=== PATIENT | female | born 1965 | race Caucasian/White ===

== ENCOUNTER 2016-09-22 20:37 | Emergency (ER) | payer OTHER ==
[2016-09-22 20:54] VITALS: BP 128/87
[2016-09-22] MEDS ORDERED: Eye Irrigation Solution 30 ML BOTTLE RIGHT EYE ONE (21:21)
[2016-09-22] MEDS ORDERED: Tetracaine 0.5% OPTH.SOL 4 ML* 1 DROP BTL RIGHT EYE ONE (21:21)
[2016-09-22] MEDS ORDERED: Proparacaine 0.5% OPHTH.SOL* 15 ML BTL RIGHT EYE ONE (21:26)
[2016-09-22] MEDS ORDERED: NS 0.9% 1000 ML* 1,000 ML IV ONE (21:36)
--- NOTE | 2016-09-22 21:53 | UC ---
Eye Complaint HPI - HPI Summary HPI Summary: The patient comes in today for: 1. Right eye injury: Onset: 9 hours ago. Palliative/provocative: Nothing helps. Quality: "Gritty and sensitive--feeling scratched." Region: Right eye Severity: 410 Time:Constant. Associated symptoms: Event: Patient put her contact lens in a cleaning solution that is supposed to be prepared with an enzyme catalyst solution which she did not put in. This cleaning solution is Tom Clear Care (3% H2O2 solution). The patient put the contact in her right eye at 1 PM today. She immediately felt pain and took the contat lens out. She tired to flush the right eye with eye wash without relief of symptoms. Previous treatment: She tried irrigating her eye with wash at home which did not help. LMP: years ago. Vision: "just fine." * - History of Current Complaint Chief Complaint: UCEye Stated Complaint: EYE INJURY Time Seen by Provider: 09/22/16 21:20 Hx Obtained From: Patient ?: No - Allergies/Home Medications Allergies/Adverse Reactions: Allergies Allergy/AdvReac Type Severity Reaction Status Date / Time Amoxicillin Allergy Rash Verified 09/22/16 20:54 Meloxicam AdvReac Intermediate See Comment Verified 09/22/16 20:54 Home Medications: Home Medications Acetaminophen 3 tab PO PRN 09/22/16 [History] Anastrozole [Arimidex] 1 mg PO DAILY 09/22/16 [History Confirmed 09/22/16] Bupropion XL* [Wellbutrin XL *] 150 mg PO DAILY 09/22/16 [History Confirmed ] Ibuprofen TAB* [Advil TAB*] 600 mg PO PRN 09/22/16 [History] PMH/Surg Hx/FS Hx/Imm Hx Previously Healthy: No - Breast cancer. Endocrine History Of: Reports: Thyroid Disease - hypothyroid Denies: Diabetes, Hyperthyroidism, Hypothyroidism, Dyslipidemia Cardiovascular History Of: Denies: Cardiac Disorders, Hypertension, Pacemaker/ICD, Myocardial Infarction , Congestive Heart Failure, Atrial Fibrillation, Deep Vein Thrombosis, Bleeding Disorders Respiratory History Of: Reports: Asthma Denies: COPD, Bronchitis, Pneumonia, Pulmonary Embolism GI/ History Of: Denies: Gastroesophageal Reflux, Ulcer, Gastrointestinal Bleed, Gall Bladder Disease, Kidney Stones, Diverticulitis, Renal Disease, Urosepsis Neurological History Of: Denies: TIA, CVA, Dementia, Seizures, Migraine Psychological History Of: Reports: Depression Denies: Anxiety, Bipolar Disorder, Schizophrenia, Post Traumatic Stress Disorder Cancer History Of: Reports: Breast Cancer - RIGHT 2012 Denies: Lung Cancer, Colorectal Cancer, Prostate Cancer, Cervical Cancer Other History Of: Negative For: HIV, Hepatitis B, Hepatitis C, Anticoagulant Therapy - Surgical History Surgical History: Yes Surgery Procedure, Year, and Place: 09/2003 LT LAMINECTOMY LUMBAR; [facility]. 1982RT KNEE COSMETIC SCAR REDUCTION; [facility]. 2011 LUMPECTOMY RT BREAST(CANCER) [facility] - Family History Known Family History: Positive: Cardiac Disease, Hypertension - Social History Occupation: Employed Full-time Alcohol Use: None Alcohol Amount: FEW DRINKS/WEEK Substance Use Type: None Smoking Status (MU): Never Smoked Tobacco Have You Smoked in the Last Year: No Review of Systems Constitutional: Negative Skin: Negative Eyes: Eye Redness ENT: Negative Respiratory: Negative Cardiovascular: Negative Gastrointestinal: Negative Genitourinary: Negative All Other Systems Reviewed And Are Negative: Yes Physical Exam Triage Information Reviewed: Yes Appearance: Well-Appearing, No Pain Distress, Well-Nourished Vital Signs: Initial Vital Signs Temp 99 F 09/22/16 20:45 Pulse 75 09/22/16 20:45 Resp 16 09/22/16 20:45 BP 128/87 09/22/16 20:45 Pulse Ox 100 09/22/16 20:45 Vital Signs Reviewed: Yes Eyes: Positive: Conjunctiva Clear - On left, Conjunctiva Inflamed - On right.. Negative: Discharge ENT: Positive: Hearing grossly normal. Negative: Pharyngeal erythema, Nasal congestion, Nasal drainage, TM bulging, TM dull, TM red, Tonsillar swelling, Tonsillar exudate Dental: Negative: Gross Decay/Caries @, Dental Fracture @ Neck: Positive: Supple, Nontender, No Lymphadenopathy. Negative: Nuchal Rigidity Respiratory: Positive: Lungs clear, No respiratory distress, No accessory muscle use. Negative: Respiratory distress, Rhonchi, Wheezing Cardiovascular: Positive: RRR, No Murmur Abdomen Description: Positive: Nontender, No Organomegaly, Soft. Negative: Distended, Guarding Musculoskeletal: Positive: Strength Intact, ROM Intact, No Edema Neurological: Positive: Alert, Muscle Tone Normal Psychological: Positive: Age Appropriate Behavior, Consolable Skin: Negative: rashes, breakdown UC Physical Exam Vital Signs On Initial Exam: Initial Vitals Temp Pulse Resp BP Pulse Ox 99 F 75 16 128/87 100 09/22/16 20:45 09/22/16 20:45 09/22/16 20:45 09/22/16 20:45 09/22/16 20:45 - Eye Exam Eye Exam: right eye: fluorescein in - No corneal uptake., bilateral eye: PERRL, no evidence of infection or trauma - Cornea free of lesions--no ulcers., cornea clear Eye Complaint Course/Dx - Differential Dx/Diagnosis Differential Diagnosis/HQI/PQRI: Conjunctivitis Provider Diagnoses: Chemical conjunctivitis-right. Discharge - Discharge Plan Condition: Stable Disposition: HOME Patient Education Materials: Conjunctivitis (ED) Referrals: Francesco Chow MD [Primary Care Provider] - Madi Coffman MD [Medical Doctor] - As Soon As Possible (Please contact your family inside meter tester, Dr. Coffman in the morning for a follow-up evaluation as he recommends. ) Additional Instructions: Use cold compresses and anti-histamine drops as needed.
[2016-09-22] MEDS ORDERED: Eye Irrigation Solution 30 ML BOTTLE ONE (22:19)
[2016-09-22] MEDS ORDERED: Fluorescein Sodium TOPICAL* 1 MG TEST ONE (22:19)
== END 2016-09-22 22:44 | disposition home or self-care (01) ==
LOC: UCEAST 20:37
DX: H10.211 Acute toxic conjunctivitis, right eye (principal); T49.5X5A Adverse effect of ophthalmological drugs and preparations, initial encounter; Y92.9 Unspecified place or not applicable; Z88.0 Allergy status to penicillin
CPT/HCPCS: 99213; A9270-GY; G0463

== ENCOUNTER 2016-12-29 10:08 | Emergency (ER) | payer OTHER ==
[2016-12-29 11:09] VITALS: BP 114/64
--- NOTE | 2016-12-29 11:52 | UC ---
Bite Injury/Animal HPI - HPI Summary HPI Summary: complaint of tick bite on her left arm head of the tick is still embedded in her arm tick in her arm less than 24 hours wants a prophylactic dose of doxycycline - History of Current Complaint Chief Complaint: UCSkin Stated Complaint: TICK BITE Time Seen by Provider: 12/29/16 11:25 Hx Obtained From: Patient - Allergies/Home Medications Allergies/Adverse Reactions: Allergies Allergy/AdvReac Type Severity Reaction Status Date / Time Amoxicillin Allergy Rash Verified 12/29/16 11:00 Meloxicam AdvReac Intermediate See Comment Verified 12/29/16 11:00 Home Medications: Home Medications Budesonide/Formote 160/4.5(NF) [Symbicort 160/4.5 (NF)] 1 puff INH DAILY [History Confirmed 12/29/16] Esomeprazole Magnesium [Nexium] 1 tab PO DAILY 12/29/16 [History Confirmed 12/29] PMH/Surg Hx/FS Hx/Imm Hx Previously Healthy: Yes Endocrine History Of: Reports: Thyroid Disease - hypothyroid Denies: Diabetes, Hyperthyroidism, Hypothyroidism, Dyslipidemia Cardiovascular History Of: Denies: Cardiac Disorders, Hypertension, Pacemaker/ICD, Myocardial Infarction , Congestive Heart Failure, Atrial Fibrillation, Deep Vein Thrombosis, Bleeding Disorders Respiratory History Of: Reports: Asthma Denies: COPD, Bronchitis, Pneumonia, Pulmonary Embolism GI/ History Of: Denies: Gastroesophageal Reflux, Ulcer, Gastrointestinal Bleed, Gall Bladder Disease, Kidney Stones, Diverticulitis, Renal Disease, Urosepsis Neurological History Of: Denies: TIA, CVA, Dementia, Seizures, Migraine Psychological History Of: Reports: Depression Denies: Anxiety, Bipolar Disorder, Schizophrenia, Post Traumatic Stress Disorder Cancer History Of: Reports: Breast Cancer - RIGHT 2012 Denies: Lung Cancer, Colorectal Cancer, Prostate Cancer, Cervical Cancer Other History Of: Negative For: HIV, Hepatitis B, Hepatitis C, Anticoagulant Therapy - Surgical History Surgical History: Yes Surgery Procedure, Year, and Place: 09/2003 LT LAMINECTOMY LUMBAR; [facility]. 1982RT KNEE COSMETIC SCAR REDUCTION; [facility]. 2011 LUMPECTOMY RT BREAST(CANCER) [facility] - Family History Known Family History: Positive: Cardiac Disease, Hypertension - Social History Occupation: Employed Full-time Lives: With Family Alcohol Use: None Alcohol Amount: FEW DRINKS/WEEK Substance Use Type: None Smoking Status (MU): Never Smoked Tobacco Have You Smoked in the Last Year: No Review of Systems Constitutional: Negative Skin: Other - tick bite ENT: Negative Respiratory: Negative Cardiovascular: Negative Gastrointestinal: Negative Genitourinary: Negative Motor: Negative Neurovascular: Negative Musculoskeletal: Negative Neurological: Negative Psychological: Negative All Other Systems Reviewed And Are Negative: Yes Physical Exam Triage Information Reviewed: Yes Appearance: No Pain Distress, Well-Nourished Vital Signs: Initial Vital Signs Temp 98.6 F 12/29/16 11:04 Pulse 89 12/29/16 11:04 Resp 16 12/29/16 11:04 BP 114/64 12/29/16 11:04 Pulse Ox 99 12/29/16 11:04 Vital Signs Reviewed: Yes Eyes: Positive: Conjunctiva Clear ENT: Positive: Pharynx normal, TMs normal Neck: Positive: No Lymphadenopathy Respiratory: Positive: Lungs clear, Normal breath sounds, No respiratory distress, No accessory muscle use Cardiovascular: Positive: RRR, No Murmur, Pulses Normal, Brisk Capillary Refill Abdomen Description: Positive: Nontender, Soft Bowel Sounds: Positive: Present Musculoskeletal Exam: Normal Neurological Exam: Normal Psychological Exam: Normal Skin: Positive: Other - left forearm- tick bite-head embedded Procedures - Procedure Summary Procedure Summary: tick head removed from left forearm with splinter tweezers Bite Injury Course/Dx - Differential Dx/Diagnosis Differential Diagnosis/HQI/PQRI: Cellulitis, Other - tick bite Provider Diagnoses: tick bite Discharge - Discharge Plan Condition: Stable Disposition: HOME Patient Education Materials: Tick Bite (ED) Additional Instructions: Please take antibiotic as directed Increase fluids and rest Take acetaminophen or ibuprofen for fever or pain Please review your discharge instructions. If your symptoms do not improve please call your primary care provider or return to urgent care.
== END 2016-12-29 12:27 | disposition home or self-care (01) ==
LOC: UCEAST 10:08
DX: S50.862A Insect bite (nonvenomous) of left forearm, initial encounter (principal); W57.XXXA Bitten or stung by nonvenomous insect and other nonvenomous arthropods, initial encounter; Y93.9 Activity, unspecified; Y92.9 Unspecified place or not applicable; Z88.0 Allergy status to penicillin; E03.9 Hypothyroidism, unspecified; J45.909 Unspecified asthma, uncomplicated; F32.9 Major depressive disorder, single episode, unspecified; Z85.3 Personal history of malignant neoplasm of breast
CPT/HCPCS: 87651; 99212; G0463

== ENCOUNTER 2017-12-28 11:42 | Emergency (ER) | payer OTHER ==
[2017-12-28 11:55] VITALS: BP 120/66
--- NOTE | 2017-12-28 12:01 | UC ---
Skin Complaint HPI - HPI Summary HPI Summary: Pt presents with tick bite to right mid back. She noticed the tick last night and thinks it was on her less than 24 hours. She was able to remove it from her skin, but thinks there may be a piece still inside. She also tells me that she has had lyme disease before and is seeking the prophylactic treatment for lyme disease today. Denies fever, chills, headache, dizziness, SOB, chest pain. - History of Current Complaint Chief Complaint: UCSkin Time Seen by Provider: 12/28/17 12:01 Stated Complaint: TICK BITE Hx Obtained From: Patient Hx Last Menstrual Period: NA Onset/Duration: Sudden Onset Current Severity: Mild Pain Intensity: 1 Pain Scale Used: 0-10 Numeric Location: Discrete - Allergy/Home Medications Allergies/Adverse Reactions: Allergies Allergy/AdvReac Type Severity Reaction Status Date / Time meloxicam Allergy Intermediate Rash Verified 12/28/17 11:58 amoxicillin Allergy mouth sores Verified 12/28/17 11:58 Review of Systems Constitutional: Negative Skin: Other - Redness right mid back Respiratory: Negative Cardiovascular: Negative Neurovascular: Negative Neurological: Negative Psychological: Negative All Other Systems Reviewed And Are Negative: Yes PMH/Surg Hx/FS Hx/Imm Hx - Additional Past Medical History Additional PMH: Lyme disease Previously Healthy: Yes Endocrine History: Thyroid Disease Respiratory History: Asthma Psychological History: Anxiety, Depression Other History Of: Negative For: HIV, Hepatitis B, Hepatitis C, Anticoagulant Therapy - Surgical History Surgical History: Yes Surgery Procedure, Year, and Place: 09/2003 [place] [facility] [place] COSMETIC SCAR REDUCTION[place] [facility] [place] 2011 LUMPECTOMY [place] BREAST[place]CANCER[place] [facility] [place] - Family History Known Family History: Positive: Cardiac Disease, Hypertension - Social History Occupation: Employed Full-time Lives: With Family Alcohol Use: Occasionally Alcohol Amount: FEW DRINKS/WEEK Substance Use Type: None Smoking Status (MU): Never Smoked Tobacco Have You Smoked in the Last Year: No Physical Exam - Summary Physical Exam Summary: GENERAL: NAD. WDWN. No pain distress. SKIN: Right mid back there is a 7mm diameter of mild erythema and edema with central 1mm area of superficial skin loss. No streaking, bleeding, or drainage. No tick FB appreciated. NECK: Supple. Nontender. No lymphadenopathy. CHEST: No accessory muscle use. Breathing comfortably and in no distress. CV: RRR. Without m/r/g. Pulses intact. Brisk cap refill. NEURO: Alert. CN II-XII grossly intact. PSYCH: Age appropriate behavior. Triage Information Reviewed: Yes Vital Signs: Initial Vital Signs Temp 98.1 F 12/28/17 11:49 Pulse 89 12/28/17 11:49 Resp 18 12/28/17 11:49 BP 120/66 12/28/17 11:49 Pulse Ox 98 12/28/17 11:49 Course/Dx - Course Course Of Treatment: Consistent with tick bite. Pt elected to have prophylactic doxycycline. 200mg given in clinic today. - Diagnoses Provider Diagnoses: Tick bite Discharge - Sign-Out/Discharge Documenting (check all that apply): Discharge/Admit/Transfer - Discharge Plan Condition: Stable Disposition: HOME Patient Education Materials: Lyme Disease (ED), Tick Bite (ED) Referrals: Francesco Chow MD [Primary Care Provider] - Additional Instructions: If you develop a fever, shortness of breath, chest pain, new or worsening symptoms - please call your PCP or go to the ED. - Billing Disposition and Condition Condition: STABLE Disposition: HOME
[2017-12-28] MEDS ORDERED: DOXYcycline CAP(*) 100 MG PO ONE (12:10)
== END 2017-12-28 12:17 | disposition home or self-care (01) ==
LOC: UCEAST 11:42
DX: S20.461A Insect bite (nonvenomous) of right back wall of thorax, initial encounter (principal); W57.XXXA Bitten or stung by nonvenomous insect and other nonvenomous arthropods, initial encounter; Y93.9 Activity, unspecified; Y92.9 Unspecified place or not applicable; A69.20 Lyme disease, unspecified; E07.9 Disorder of thyroid, unspecified; J45.909 Unspecified asthma, uncomplicated; F41.9 Anxiety disorder, unspecified; F32.9 Major depressive disorder, single episode, unspecified; Z88.0 Allergy status to penicillin; Z88.8 Allergy status to other drugs, medicaments and biological substances
CPT/HCPCS: 99211; A9270-GY; G0463